=== PATIENT | male | born 1960 | race African-American/Black ===

== ENCOUNTER 2019-08-09 05:33 | Inpatient (IN) | payer SELFPAY ==
[2019-08-09] MEDS ORDERED: IPRATROPIUM/ALBUTEROL 0.5-2.5 MG/3 ML AMPUL NEB ONE ×2 (05:39→05:57)
[2019-08-09] MEDS ORDERED: METHYLPREDNISOLONE INJ 125 MG/2 ML SDV ONE (05:39)
[2019-08-09] MEDS ORDERED: ALBUTEROL SULFATE 0.083% NEB 2.5 MG/3 ML AMPUL NEB ONE ×2 (05:39→06:40)
[2019-08-09] MEDS ORDERED: MAGNESIUM SULFATE/D5W 2 GM/200 ML RTUPB IV ONE (05:39)
--- NOTE | 2019-08-09 05:43 | ER Document Report ---
ED General - General Chief Complaint: Breathing Difficulty Stated Complaint: BREATHING DIFFICULTY Time Seen by Provider: 08/09/19 05:37 Mode of Arrival: Ambulatory Information source: Patient Notes: 59-year-old black male from [place] arrives after having 4 hours of increased respiratory distress while down in [place]. He is out of his hand-held nebulizer which he usually readily uses if he has respiratory problems. Patient advises that the pine pollen in [place] is much different than in [place] at this time. He also complains of shortness of breath and 2 word sentenc es and assess her use of musculature and neck. TRAVEL OUTSIDE OF THE [place] IN LAST 30 DAYS: No - HPI Onset: Just prior to arrival - Related Data Allergies/Adverse Reactions: No Known Allergies Allergy (Unverified 09/05/18 05:58) Past Medical History - General Information source: Patient - Social History Smoking Status: Former Smoker Cigarette use (# per day): No Chew tobacco use (# tins/day): No Smoking Education Provided: No Frequency of alcohol use: Occasional Drug Abuse: None Family History: Reviewed & Not Pertinent, Hypertension Pulmonary Medical History: Reports: Hx COPD Renal/ Medical History: Denies: Hx Peritoneal Dialysis Review of Systems - Review of Systems Constitutional: See HPI, Malaise, Weakness EENT: See HPI, Nose congestion, Sinus pressure Cardiovascular: See HPI, Heart racing Respiratory: See HPI, Cough, Hurts to breathe, Short of breath, Sputum, Wheezing Gastrointestinal: No symptoms reported Genitourinary: No symptoms reported Male Genitourinary: No symptoms reported Musculoskeletal: No symptoms reported Skin: No symptoms reported Hematologic/Lymphatic: No symptoms reported Neurological/Psychological: No symptoms reported Physical Exam - Vital signs Vitals: Resp Pulse Ox 22 H 99 08/09/19 05:37 08/09/19 05:37 Interpretation: Tachycardic, Tachypneic - General General appearance: Alert, Anxious - HEENT Head: Normocephalic Eyes: Normal Conjunctiva: Normal Cornea: Normal Extraocular movements intact: Yes Eyelashes: Normal Pupils: PERRL Sinus: Normal Nasal: Normal Mouth/Lips: Normal Mucous membranes: Normal Pharynx: Normal Neck: Normal - Respiratory Respiratory status: Respiratory distress Chest status: Nontender, Pain with deep breathing, Accessory muscle use, Prolonged expirations Breath sounds: Decreased air movement, Wheezing Chest palpation: Normal - Cardiovascular Rhythm: Tachycardia Heart sounds: Normal auscultation Murmur: No Friction rub: No Lisa's crunch: No - Abdominal Inspection: Normal Distension: No distension Bowel sounds: Normal Tenderness: Nontender Organomegaly: No organomegaly - Back Back: Normal - Extremities General upper extremity: Normal inspection General lower extremity: Normal inspection - Neurological Neuro grossly intact: Yes Cognition: Normal Orientation: AAOx4 Juliette Coma Scale Eye Opening: Spontaneous [place]te Coma Scale Verbal: Oriented [place] Coma Scale Motor: Obeys Commands [place] Coma Scale Total: 15 Speech: Normal Cranial nerves: Normal Cerebellar coordination: Normal Motor strength normal: LUE, RUE, LLE, RLE - Psychological Associated symptoms: Anxious - Skin Skin Temperature: Cool Skin Moisture: Diaphoretic Course - Vital Signs Vital signs: Temp Pulse Resp BP Pulse Ox 22 H 143/109 H 98 08/09/19 06:01 08/09/19 06:01 08/09/19 06:01 - Laboratory Result Diagrams: 08/09/19 05:53 08/09/19 05:53 Laboratory results interpreted by me: 08/09/19 08/09/19 08/09/19 05:42 05:53 05:53 RDW 14.1 H Eos % (Auto) 14.6 H Absolute Eos (auto) 1.1 H Seg Neutrophils % 29.6 L VBG pH 7.24 L VBG pCO2 67.9 H* Carbon Dioxide 32 H Glucose 139 H Total Protein 8.9 H - Diagnostic Test Radiology reviewed: Reports reviewed - EKG Interpretation by Me EKG shows normal: Sinus rhythm Rate: Tachycardia Rhythm: NSR Critical Care Note - Critical Care Note Total time excluding time spent on procedures (mins): 90 Comments: Patient's arrives at 0 610 and she has no complaints. They deny any exposure to coronavirus but they are from [place]. Patient looks much improved by 0 626 with lungs clear on auscultation. Patient continues his breathing treatment at this time. Will write for hand-held nebulizer refill Z-Per and steroids Decadron 4 mg twice daily Discharge - Discharge Clinical Impression: COPD with exacerbation Asthmatic bronchitis Qualifiers: Asthma severity: severe Asthma persistence: persistent Asthma complication type: uncomplicated Qualified Code(s): J45.50 - Severe persistent asthma, uncomplicated Condition: Good Disposition: HOME, SELF-CARE Additional Instructions: Follow-up with personal doctor this week return to ER as needed ;take medicines as directed; encourage fluids; try to avoid pollen contaminated areas Prescriptions: Dexamethasone [Decadron 4 Mg Tablet] 4 mg PO BID #8 tablet Albuterol Sulfate [Proair HFA Inhalation Aerosol 8.5 gm MDI] 2 puff IH Q4H PRN #1 mdi PRN Reason: Azithromycin [Zithromax 250 mg Tablet] 250 mg PO ASDIR PRN #6 tablet PRN Reason:
[2019-08-09] MEDS ORDERED: METHYLPREDNISOLONE INJ 125 MG/2 ML SDV IV ONE (05:57)
[2019-08-09] MEDS: MAGNESIUM SULFATE/D5W 1 GM/100 ML RTUPB IV SCH ×2 (06:01→06:14)
[2019-08-09 06:02] LABS: ABSOLUTE BASOPHILS # (AUTO) 0.1 10^3/uL (0.0-0.2); ABSOLUTE EOSINOPHILS # (AUTO) 1.1 10^3/uL (0.0-0.6); ABSOLUTE LYMPHOCYTES (AUTO) 3.3 10^3/uL (0.5-4.7); ABSOLUTE MONOCYTES (AUTO) 0.8 10^3/uL (0.1-1.4); ABSOLUTE NEUT (AUTO) 2.3 10^3/uL (1.7-8.2); BASOPHILS % (AUTO) 1.4 % (0-2); EOSINOPHILS % (AUTO) 14.6 % (0-6); HEMATOCRIT 44.6 % (37.9-51.0); HEMOGLOBIN 15.1 g/dL (13.5-17.0); LYMPHOCYTES % (AUTO) 43.8 % (13-45); MEAN CORPUSCULAR HEMOGLOBIN 27.5 pg (27.0-33.4); MEAN CORPUSCULAR HGB CONC 33.8 g/dL (32.0-36.0); MEAN CORPUSCULAR VOLUME 81 fl (80-97); MONOCYTES % (AUTO) 10.6 % (3-13); PLATELET COUNT 256 10^3/uL (150-450); RED BLOOD COUNT 5.48 10^6/uL (4.35-5.55); RED CELL DISTRIBUTION WIDTH 14.1 % (11.5-14.0); SEGMENTED NEUTROPHILS % (AUTO) 29.6 % (42-78); TOTAL CELLS COUNTED % (AUTO) 100 %; WHITE BLOOD COUNT 7.6 10^3/uL (4.0-10.5)
[2019-08-09 06:10] LABS: ALBUMIN 4.9 g/dL (3.5-5.0); ALKALINE PHOSPHATASE 60 U/L (38-126); ANION GAP 10 (5-19); ASPARTATE AMINO TRANSFERASE 29 U/L (17-59); BILIRUBIN,DIRECT 0.2 mg/dL (0.0-0.4); BILIRUBIN,TOTAL 1.1 mg/dL (0.2-1.3); BLOOD UREA NITROGEN 10 mg/dL (7-20); CALCIUM 9.4 mg/dL (8.4-10.2); CARBON DIOXIDE 32 mmol/L (22-30); CHLORIDE 99 mmol/L (98-107); GLUCOSE 139 mg/dL (75-110); POTASSIUM 4.2 mmol/L (3.6-5.0); TOTAL PROTEIN 8.9 g/dL (6.3-8.2)
[2019-08-09 06:20] LABS: INTERNATIONAL RATION (INR) 0.98
[2019-08-09 06:21] LABS: VENOUS BLOOD BASE EXCESS -1.1 mmol/L; VENOUS BLOOD HCO3 28.3 mmol/L (20-32); VENOUS BLOOD PH 7.24 (7.30-7.42)
[2019-08-09 06:22] LABS: VENOUS BLOOD PCO2 67.9 mmHg (35-63)
[2019-08-09] MEDS: ALBUTEROL SULFATE 0.083% NEB 2.5 MG/3 ML AMPUL NEB SCH ×5 (07:03→20:04)
--- NOTE | 2019-08-09 07:34 | ER Document Report ---
Doctor's Note Notes: 08/09/19 07:32 This 59-year-old male patient with a history of COPD and the nurse asked me to see this patient because he was up for discharge while he was still on BiPAP receiving breathing treatments. She is concerned that he was still with diffuse wheezing. I saw the patient and found him to still have diffuse expiratory expiratory wheezes and rhonchi. He states his breathing was much better than when he first got here. His states that his breathing when he came in was as bad as it was in August of last year when he was admitted here. His chest x-ray shows hyperinflated lungs. Dr. Gonsalez of the hospitalist service was contacted and she will admit the patient to [facility].
--- NOTE | 2019-08-09 07:36 | RADIOLOGY REPORT (SQ) ---
EXAM DESCRIPTION: XR CHEST 1 VIEW COMPLETED DATE/TME: 08/09/2019 05:45 CLINICAL HISTORY: sob COMPARISON: None. FINDINGS: Single frontal view of the chest. Cardiomediastinal silhouette: Normal size and contour. Lungs: No consolidation, pneumothorax, or pleural effusion. Bones: No acute osseous abnormality. Leads overlie the chest. Upper abdomen: No abnormality identified. IMPRESSION: 1. No acute pulmonary process identified.
[2019-08-09] MEDS ORDERED: IPRATROPIUM/ALBUTEROL 0.5-2.5 MG/3 ML AMPUL NEB PRN (07:57)
[2019-08-09] MEDS ORDERED: ACETAMINOPHEN 325 MG TABLET PO PRN (07:57)
[2019-08-09] MEDS ORDERED: ONDANSETRON 4 MG TAB.RAPDIS PO PRN (07:57)
[2019-08-09] MEDS ORDERED: MAG HYDROX/AL HYDROX/SIMETH SUSP 30 ML UDCUP PO PRN (07:57)
[2019-08-09] MEDS ORDERED: OXYCODONE-ACETAMINOPHEN 5-325 MG TABLET PO PRN (07:57)
[2019-08-09] MEDS ORDERED: ZOLPIDEM TARTRATE 5 MG TABLET PO PRN (07:57)
[2019-08-09 08:58] LABS: ARTERIAL BLOOD BASE EXCESS 0.3 mmol/L; ARTERIAL BLOOD FIO2 30%; ARTERIAL BLOOD H2CO3 1.32 mmol/L (1.05-1.35); ARTERIAL BLOOD HCO3 25.6 mmol/L (20-24); ARTERIAL BLOOD O2 SATURATION 94.3 % (94-98); ARTERIAL BLOOD PH 7.38 (7.35-7.45); ARTERIAL BLOOD PO2 72.4 mmHg (80-100)
--- NOTE | 2019-08-09 10:27 | PDOC H&P ---
History of Present Illness Admission Date/PCP: 08/09/19 07:39 Patient complains of: Patient presents emergency room with complaint of difficulty breathing and shortness of breath. He had been in the ER overnight and had required bronchodilators as well as steroid treatment. He however c ontinue to wheeze and had to be placed on BiPAP. He is been admitted for further management. History of Present Illness: ZECHARIAH BOYER is a 59 year old mal Patient was seen on BiPAP. He states his breathing is better. He is actually visiting from [place]. There is no complaint of fever sore throat dizziness chest pain or any other pertinent symptoms. He does have a history of COPD. There is been no history of outside travel. He apparently was admitted here abo pa a year ago for the same symptoms. X-ray shows hyperinflated lungs. Patient said he was out on the beach enjoying the sunrise and then went back home symptoms started shortly after. He felt that he may be due to the allergens Past Medical History Pulmonary Medical History: Reports: Chronic Obstructive Pulmonary Disease (COPD) Past Surgical History Past Surgical History: Reports: None Social History Information Source: Patient Smoking Status: Never Smoker Electronic Cigarette use?: No Frequency of Alcohol Use: None Hx Recreational Drug Use: No Drugs: None Hx Prescription Drug Abuse: No - Advance Directive Resuscitation Status: Full Code Family History Family History: Reviewed & Not Pertinent, Hypertension Parental Family History Reviewed: Yes Children Family History Reviewed: Yes Sibling(s) Family History Reviewed.: Yes Medication/Allergy Home Medications: Albuterol Sulfate [Proair HFA Inhalation Aerosol 8.5 gm MDI] 2 puff IH Q4HP PRN 09/05/18 Albuterol Sulfate [Proair HFA Inhalation Aerosol 8.5 gm MDI] 2 puff IH Q4H PRN #1 mdi 08/09/19 Azithromycin [Zithromax 250 mg Tablet] 250 mg PO ASDIR PRN #6 tablet 08/09/19 Dexamethasone [Decadron 4 Mg Tablet] 4 mg PO BID #8 tablet 08/09/19 Umeclidinium Brm/Vilanterol Tr [Anoro Ellipta 62.5-25 Mcg INH] 1 puff IH DAILY 08/09/19 Allergies/Adverse Reactions: No Known Allergies Allergy (Unverified 09/05/18 05:58) Review of Systems All systems: reviewed and no additional remarkable complaints except as stated Nose, Mouth, and Throat: ABSENT: headache(s), sore throat Cardiovascular: ABSENT: chest pain, dyspnea on exertion, orthropnea Respiratory: PRESENT: dyspnea. ABSENT: cough, hemoptysis, sputum Physical Exam Vital Signs: Temp Pulse Resp BP Pulse Ox 97.4 F 103 H 16 124/88 H 96 08/09/19 09:30 08/09/19 09:32 08/09/19 09:43 08/09/19 09:30 08/09/19 09:43 Intake & Output 08/08/19 08/09/19 08/10/19 06:59 06:59 06:59 Intake Total 200 Balance 200 Weight 70.307 kg General appearance: PRESENT: no acute distress, well-nourished, other - BIPAP in place Head exam: PRESENT: atraumatic Eye exam: PRESENT: conjunctiva pink, EOMI, PERRLA. ABSENT: scleral icterus Ear exam: PRESENT: normal external ear exam Mouth exam: PRESENT: moist, tongue midline Neck exam: ABSENT: carotid bruit, JVD, lymphadenopathy, thyromegaly Respiratory exam: PRESENT: decreased breath sounds, rhonchi, unlabored, wheezes. ABSENT: accessory muscle use, chest wall tenderness, crackles, rales, retraction, tachypnea Cardiovascular exam: PRESENT: RRR. ABSENT: diastolic murmur, rubs, systolic murmur Pulses: PRESENT: normal dorsalis pedis pul Vascular exam: PRESENT: normal capillary refill GI/Abdominal exam: PRESENT: normal bowel sounds, soft. ABSENT: distended, guarding, mass, organolmegaly, rebound, tenderness Rectal exam: PRESENT: deferred Extremities exam: PRESENT: full ROM. ABSENT: calf tenderness, clubbing, pedal edema Neurological exam: PRESENT: alert, awake, oriented to person, oriented to place, oriented to time, oriented to situation, CN II-XII grossly intact. ABSENT: motor sensory deficit Psychiatric exam: PRESENT: appropriate affect, normal mood. ABSENT: homicidal ideation, suicidal ideation Skin exam: PRESENT: dry, intact, warm. ABSENT: cyanosis, rash Results Laboratory Results: 08/09/19 05:53 08/09/19 05:53 08/09/19 08/09/19 08/09/19 05:42 05:42 05:53 WBC 7.6 RBC 5.48 Hgb 15.1 Hct 44.6 MCV 81 MCH 27.5 MCHC 33.8 RDW 14.1 H Plt Count 256 Seg Neutrophils % 29.6 L Carbonic Acid HCO3/H2CO3 Ratio ABG pH ABG pCO2 ABG pO2 ABG HCO3 ABG O2 Saturation ABG Base Excess VBG pH 7.24 L VBG pCO2 67.9 H* VBG HCO3 28.3 VBG Base Excess -1.1 FiO2 Sodium Potassium Chloride Carbon Dioxide Anion Gap BUN Creatinine Est GFR ( Amer) Glucose Lactic Acid 1.8 Calcium Total Bilirubin AST Alkaline Phosphatase Total Protein Albumin 08/09/19 08/09/19 05:53 08:44 WBC RBC Hgb Hct MCV MCH MCHC RDW Plt Count Seg Neutrophils % Carbonic Acid 1.32 HCO3/H2CO3 Ratio 19:1 ABG pH 7.38 ABG pCO2 44.0 ABG pO2 72.4 L ABG HCO3 25.6 H ABG O2 Saturation 94.3 ABG Base Excess 0.3 VBG pH VBG pCO2 VBG HCO3 VBG Base Excess FiO2 30% Sodium 140.5 Potassium 4.2 Chloride 99 Carbon Dioxide 32 H Anion Gap 10 BUN 10 Creatinine 0.99 Est GFR ( Amer) > 60 Glucose 139 H Lactic Acid Calcium 9.4 Total Bilirubin 1.1 AST 29 Alkaline Phosphatase 60 Total Protein 8.9 H Albumin 4.9 08/09/19 05:42 Troponin I < 0.012 Impressions: Chest X-Ray 08/09/19 05:45 IMPRESSION: 1. No acute pulmonary process identified. Assessment and Plan - Diagnosis (1) Acute hypercapnic respiratory failure Is this a current diagnosis for this admission?: Yes Plan: PCO2 was found to be elevated. He remains on BiPAP. Will wean off as tolerated (2) COPD with exacerbation Is this a current diagnosis for this admission?: Yes Plan: Continue bronchodilators as well as steroids. Will review his home medications and start him on his other inhalers as indicated. He will also be placed on empiric Zithromax - Time Time Spent with patient: 25-34 minutes Medications reviewed and adjusted accordingly: Yes Anticipated discharge: Home Within: within 48 hours - Inpatient Certification Based on my medical assessment, after consideration of the patient's comorbid ities, presenting symptoms, or acuity I expect that the services needed warrant INPATIENT care.: Yes Medical Necessity: Need for Nebulizer Therapy and Monitoring of Response, Risk of Complication if Not Cared For in Hospital
[2019-08-09] MEDS: AZITHROMYCIN 250 MG TABLET PO SCH (10:54)
[2019-08-09] MEDS: ENOXAPARIN SODIUM INJ 40 MG/0.4 ML DISP.SYRIN SUBCUT SCH (10:54)
[2019-08-09] MEDS: DOCUSATE SODIUM 100 MG CAPSULE PO SCH (10:54)
[2019-08-09] MEDS: DEXTROSE 5%-1/2 NORMAL SALINE 1,000 ML IV PRN (13:13)
--- NOTE | 2019-08-09 15:54 | EKG REPORT ---
SEVERITY:- BORDERLINE ECG - SINUS TACHYCARDIA PROBABLE LEFT ATRIAL ABNORMALITY : Confirmed by: Cecile Hoyt MD 09-Aug-2019 15:53:26
[2019-08-10] MEDS: DEXTROSE 5%-1/2 NORMAL SALINE 1,000 ML IV PRN ×2 (02:07→17:44)
[2019-08-10] MEDS: ALBUTEROL SULFATE 0.083% NEB 2.5 MG/3 ML AMPUL NEB SCH ×4 (02:17→20:02)
[2019-08-10 04:55] LABS: HEMATOCRIT 40.6 % (37.9-51.0); HEMOGLOBIN 13.5 g/dL (13.5-17.0); MEAN CORPUSCULAR HGB CONC 33.4 g/dL (32.0-36.0); MEAN CORPUSCULAR VOLUME 81 fl (80-97); PLATELET COUNT 225 10^3/uL (150-450); RED BLOOD COUNT 5.02 10^6/uL (4.35-5.55); RED CELL DISTRIBUTION WIDTH 13.9 % (11.5-14.0); WHITE BLOOD COUNT 9.9 10^3/uL (4.0-10.5)
[2019-08-10 05:12] LABS: ANION GAP 12 (5-19); BLOOD UREA NITROGEN 14 mg/dL (7-20); CALCIUM 9.4 mg/dL (8.4-10.2); CARBON DIOXIDE 25 mmol/L (22-30); CHLORIDE 102 mmol/L (98-107); GLUCOSE 114 mg/dL (75-110); POTASSIUM 4.5 mmol/L (3.6-5.0)
--- NOTE | 2019-08-10 09:57 | PDOC PROGRESS REPORT ---
Subjective Progress Note for:: 08/10/19 Subjective:: Patient says his breathing is better. He still pretty stuffy. Is still apparently is hypoxemic especially when sleeping. Is currently on 3 L of oxygen. Reason For Visit: ACUTE HYPERCAPNEIC RESPIRATORY FAILURE, ASTHMA Physical Exam Vital Signs: Temp Pulse Resp BP Pulse Ox 98.3 F 91 24 H 153/92 H 93 08/10/19 08:55 08/10/19 08:55 08/10/19 08:55 08/10/19 08:55 08/10/19 08:55 Intake & Output 08/09/19 08/10/19 08/11/19 06:59 06:59 06:59 Intake Total 200 1748 Output Total 2350 Balance 200 -602 Weight 70.307 kg 73.4 kg General appearance: PRESENT: no acute distress, cooperative Head exam: PRESENT: atraumatic, normocephalic Eye exam: PRESENT: conjunctiva pink. ABSENT: scleral icterus Mouth exam: PRESENT: moist, tongue midline Neck exam: ABSENT: carotid bruit, JVD, lymphadenopathy, thyromegaly Respiratory exam: PRESENT: decreased breath sounds, rhonchi, unlabored, wheezes - Inspiratory bilateral. ABSENT: rales Cardiovascular exam: PRESENT: RRR, +S1, +S2. ABSENT: diastolic murmur, rubs, systolic murmur Pulses: PRESENT: normal dorsalis pedis pul Vascular exam: PRESENT: normal capillary refill GI/Abdominal exam: PRESENT: normal bowel sounds, soft. ABSENT: distended, guarding, mass, organolmegaly, rebound, tenderness Rectal exam: PRESENT: deferred Extremities exam: PRESENT: full ROM. ABSENT: calf tenderness, clubbing, pedal edema Neurological exam: PRESENT: alert, awake, oriented to person, oriented to place, oriented to time, oriented to situation, CN II-XII grossly intact. ABSENT: motor sensory deficit Psychiatric exam: PRESENT: appropriate affect, normal mood. ABSENT: homicidal ideation, suicidal ideation Skin exam: PRESENT: dry, intact, warm. ABSENT: cyanosis, rash Results Laboratory Results: 08/10/19 04:16 08/10/19 04:16 08/09/19 08/09/19 08/10/19 10:15 13:00 04:16 WBC 9.9 RBC 5.02 Hgb 13.5 Hct 40.6 MCV 81 MCH 27.0 MCHC 33.4 RDW 13.9 Plt Count 225 Sodium Potassium Chloride Carbon Dioxide Anion Gap BUN Creatinine Est GFR ( Amer) Glucose Lactic Acid 3.1 H 8.0 H Calcium 08/10/19 04:16 WBC RBC Hgb Hct MCV MCH MCHC RDW Plt Count Sodium 138.5 Potassium 4.5 Chloride 102 Carbon Dioxide 25 Anion Gap 12 BUN 14 Creatinine 0.75 Est GFR ( Amer) > 60 Glucose 114 H Lactic Acid Calcium 9.4 08/09/19 05:42 Troponin I < 0.012 Impressions: Chest X-Ray 08/09/19 05:45 IMPRESSION: 1. No acute pulmonary process identified. Assessment and Plan - Diagnosis (1) Acute hypercapnic respiratory failure Is this a current diagnosis for this admission?: Yes Plan: Patient is hypoxemic. He remains on oxygen. He used BiPAP during the night but currently off BiPAP at the time of my exam. We will continue to support and wean off oxygen as tolerated (2) COPD with exacerbation Is this a current diagnosis for this admission?: Yes Plan: Continue bronchodilators as well as steroids and Zithromax. Due to patient's still bronchospastic, hypoxemic is currently going to require further inpatient management and is now stable for discharge. We will add Flonase to his regimen as well as Mucinex and flutter valve - Time Time Spent with patient: 15-24 minutes Medications reviewed and adjusted accordingly: Yes Anticipated discharge: Home Within: within 24 hours
[2019-08-10] MEDS: DOCUSATE SODIUM 100 MG CAPSULE PO SCH (09:58)
[2019-08-10] MEDS ORDERED: (PENDING PHARMACY ID) (Umeclidinium Brm/Vilanterol Tr [Anoro Ellipta 62.5-25 Mcg Inh] 1 PU IH SCH (10:00)
[2019-08-10] MEDS: METHYLPREDNISOLONE INJ 40 MG/1 ML SDV IV SCH ×3 (10:28→21:47)
[2019-08-10] MEDS: GUAIFENESIN 600 MG TABLET.SA PO SCH ×2 (10:28→21:47)
[2019-08-10] MEDS: AZITHROMYCIN 250 MG TABLET PO SCH (10:28)
[2019-08-10] MEDS: ENOXAPARIN SODIUM INJ 40 MG/0.4 ML DISP.SYRIN SUBCUT SCH (10:29)
[2019-08-10] MEDS: FLUTICASONE NASAL SPRAY 50 MCG/SPRY 120 SPRAY/16 GM NASL SCH ×2 (10:44→21:47)
[2019-08-11] MEDS: ALBUTEROL SULFATE 0.083% NEB 2.5 MG/3 ML AMPUL NEB SCH ×2 (02:27→07:57)
[2019-08-11] MEDS: METHYLPREDNISOLONE INJ 40 MG/1 ML SDV IV SCH (05:19)
[2019-08-11] MEDS: DEXTROSE 5%-1/2 NORMAL SALINE 1,000 ML IV PRN (07:07)
[2019-08-11] MEDS: ENOXAPARIN SODIUM INJ 40 MG/0.4 ML DISP.SYRIN SUBCUT SCH (09:21)
[2019-08-11] MEDS: GUAIFENESIN 600 MG TABLET.SA PO SCH (09:22)
[2019-08-11] MEDS: DOCUSATE SODIUM 100 MG CAPSULE PO SCH (09:22)
[2019-08-11] MEDS: AZITHROMYCIN 250 MG TABLET PO SCH (09:22)
[2019-08-11] MEDS: FLUTICASONE NASAL SPRAY 50 MCG/SPRY 120 SPRAY/16 GM NASL SCH (09:23)
[2019-08-11] MEDS ORDERED: FLUTICASONE/VILANTEROL 200-25 MCG/DOSE IH SCH (12:00)
[2019-08-11] MEDS ORDERED: ALBUTEROL SULFATE HFA (90 MCG/PUFF) 8 GM MDI IH ONE (12:00)
--- NOTE | 2019-08-11 13:02 | PDOC DISCHARGE SUMMARY ---
Impression - Admit/DC Date/PCP Admission Date/Primary Care Provider: 08/09/19 07:39 Discharge Date: 08/11/19 - Discharge Diagnosis (1) COPD with exacerbation Is this a current diagnosis for this admission?: Yes (2) Elevated lactic acid level Is this a current diagnosis for this admission?: Yes (3) Acute hypoxemic respiratory failure Is this a current diagnosis for this admission?: Yes - Additional Information Resuscitation Status: Full Code Discharge Activity: Activity As Tolerated Referrals: follow up, [place] [Other] (Patient is a resident of [place]. Will make follow-up when he returns home.) Prescriptions: Fluticasone/Vilanterol [Breo 200-25 Mcg Ellipta 14 Dose/Dpi] 1 inh IH DAILY #1 inhaler Prednisone [Deltasone 20 mg Tablet] 40 mg PO DAILY #10 tablet Fluticasone Propionate [Flonase Nasal [place] 50 Mcg/[place] 16 gm] 1 spray NASL Q12 #1 spray.pump Albuterol Sulfate [Proair HFA Inhalation Aerosol 8.5 gm MDI] 2 puff IH Q4H PRN #1 mdi PRN Reason: Tiotropium [place] [Spiriva Respimat] 4 gm IH DAILY #1 mist.inhal Azithromycin [Zithromax 250 mg Tablet] 500 mg PO DAILY #5 tablet Home Medications: Albuterol Sulfate [Proair HFA Inhalation Aerosol 8.5 gm MDI] 2 puff IH Q4HP PRN 09/05/18 Albuterol Sulfate [Proair HFA Inhalation Aerosol 8.5 gm MDI] 2 puff IH Q4H PRN #1 mdi 08/09/19 Azithromycin [Zithromax 250 mg Tablet] 500 mg PO DAILY #5 tablet 08/11/19 Fluticasone Propionate [Flonase Nasal [place] 50 Mcg/[place] 16 gm] 1 spray NASL Q12 #1 spray.pump 08/11/19 Fluticasone/Vilanterol [Breo 200-25 Mcg Ellipta 14 Dose/Dpi] 1 inh IH DAILY #1 inhaler 08/11/19 Prednisone [Deltasone 20 mg Tablet] 40 mg PO DAILY #10 tablet 08/11/19 Tiotropium [place] [Spiriva Respimat] 4 gm IH DAILY #1 mist.inhal 08/11/19 History of Present Illiness History of Present Illness: ZECHARIAH BOYER is a 59 year old mal Patient was seen on BiPAP. He states his breathing is better. He is actually visiting from [place]. There is no complaint of fever sore throat dizziness chest pain or any other pertinent symptoms. He does have a history of COPD. There is been no history of outside travel. He apparently was admitted here about a year ago for the same symptoms. X-ray shows hyperinflated lungs. Patient said he was out on the beach enjoying the sunrise and then went back home symptoms started shortly after. He felt that he may be due to the allergens Hospital Course Hospital Course: Patient was admitted for further evaluation and management of his COPD exacerbation. He was found to be hypercapnic in the emergency room. He was briefly placed on BiPAP but patient did continue to improve. He was treated with bronchodilators as well as steroids. He was treated with empiric oral antibiotics. He was initially hypoxemic and hypercapnic but this time this has resolved with no need for home oxygen. Patient has remained hemodynamically stable throughout his hospital stay. He has been discharged home in stable condition Physical Exam Vital Signs: Temp Pulse Resp BP Pulse Ox 97.2 F 86 16 135/88 H 95 08/11/19 11:19 08/11/19 11:19 08/11/19 11:19 08/11/19 11:19 08/11/19 11:19 Intake & Output 08/10/19 08/11/19 08/12/19 06:59 06:59 06:59 Intake Total 1748 1880 1000 Output Total 2350 2375 Balance -602 -495 1000 Weight 73.4 kg 69.9 kg General appearance: PRESENT: no acute distress, thin, well-nourished, other - Nasally congested Head exam: PRESENT: atraumatic, normocephalic Eye exam: PRESENT: PERRLA. ABSENT: scleral icterus Mouth exam: PRESENT: tongue midline Neck exam: ABSENT: carotid bruit, JVD, lymphadenopathy, thyromegaly Respiratory exam: PRESENT: clear to auscultation tulio, decreased breath sounds, unlabored. ABSENT: rales, rhonchi, wheezes Cardiovascular exam: PRESENT: RRR, +S1, +S2. ABSENT: diastolic murmur, rubs, systolic murmur Pulses: PRESENT: normal dorsalis pedis pul Vascular exam: PRESENT: normal capillary refill GI/Abdominal exam: PRESENT: normal bowel sounds, soft. ABSENT: distended, guarding, mass, organolmegaly, rebound, tenderness Rectal exam: PRESENT: deferred Extremities exam: PRESENT: full ROM. ABSENT: calf tenderness, clubbing, pedal edema Neurological exam: PRESENT: alert, awake, oriented to person, oriented to place, oriented to time, oriented to situation, CN II-XII grossly intact. ABSENT: motor sensory deficit Psychiatric exam: PRESENT: appropriate affect, normal mood. ABSENT: homicidal ideation, suicidal ideation Skin exam: PRESENT: dry, intact, warm. ABSENT: cyanosis, rash Results Laboratory Results: WBC 9.9 10^3/uL (4.0-10.5) 08/10/19 04:16 RBC 5.02 10^6/uL (4.35-5.55) 08/10/19 04:16 Hgb 13.5 g/dL (13.5-17.0) 08/10/19 04:16 Hct 40.6 % (37.9-51.0) 08/10/19 04:16 MCV 81 fl (80-97) 08/10/19 04:16 MCH 27.0 pg (27.0-33.4) 08/10/19 04:16 MCHC 33.4 g/dL (32.0-36.0) 08/10/19 04:16 RDW 13.9 % (11.5-14.0) 08/10/19 04:16 Plt Count 225 10^3/uL (150-450) 08/10/19 04:16 Lymph % (Auto) 43.8 % (13-45) 08/09/19 05:53 [facility] % (Auto) 10.6 % (3-13) 08/09/19 05:53 Eos % (Auto) 14.6 % (0-6) H 08/09/19 05:53 Baso % (Auto) 1.4 % (0-2) 08/09/19 05:53 Absolute Neuts (auto) 2.3 10^3/uL (1.7-8.2) 08/09/19 05:53 Absolute Lymphs (auto) 3.3 10^3/uL (0.5-4.7) 08/09/19 05:53 Absolute Monos (auto) 0.8 10^3/uL (0.1-1.4) 08/09/19 05:53 Absolute Eos (auto) 1.1 10^3/uL (0.0-0.6) H 08/09/19 05:53 Absolute Basos (auto) 0.1 10^3/uL (0.0-0.2) 08/09/19 05:53 Seg Neutrophils % 29.6 % (42-78) L 08/09/19 05:53 PT 13.0 SEC (11.4-15.4) 08/09/19 05:42 INR 0.98 08/09/19 05:42 Carbonic Acid 1.32 mmol/L (1.05-1.35) 08/09/19 08:44 HCO3/H2CO3 Ratio 19:1 08/09/19 08:44 ABG pH 7.38 (7.35-7.45) 08/09/19 08:44 ABG pCO2 44.0 mmHg (35-45) 08/09/19 08:44 ABG pO2 72.4 mmHg (80-100) L 08/09/19 08:44 ABG HCO3 25.6 mmol/L (20-24) H 08/09/19 08:44 ABG Total CO2 27.0 mmol/L (23-27) 08/09/19 08:44 ABG O2 Saturation 94.3 % (94-98) 08/09/19 08:44 ABG Base Excess 0.3 mmol/L 08/09/19 08:44 VBG pH 7.24 (7.30-7.42) L 08/09/19 05:42 VBG pCO2 67.9 mmHg (35-63) H* 08/09/19 05:42 VBG HCO3 28.3 mmol/L (20-32) 08/09/19 05:42 VBG Base Excess -1.1 mmol/L 08/09/19 05:42 FiO2 30% 08/09/19 08:44 Sodium 138.5 mmol/L (137-145) 08/10/19 04:16 Potassium 4.5 mmol/L (3.6-5.0) 08/10/19 04:16 Chloride 102 mmol/L (98-107) 08/10/19 04:16 Carbon Dioxide 25 mmol/L (22-30) 08/10/19 04:16 Anion Gap 12 (5-19) 08/10/19 04:16 BUN 14 mg/dL (7-20) 08/10/19 04:16 Creatinine 0.75 mg/dL (0.52-1.25) 08/10/19 04:16 Est GFR ( Amer) > 60 (>60) 08/10/19 04:16 Est GFR (MDRD) Non-Af > 60 (>60) 08/10/19 04:16 Glucose 114 mg/dL (75-110) H 08/10/19 04:16 Lactic Acid 3.1 mmol/L (0.7-2.1) H 08/10/19 09:40 Calcium 9.4 mg/dL (8.4-10.2) 08/10/19 04:16 Total Bilirubin 1.1 mg/dL (0.2-1.3) 08/09/19 05:53 Direct Bilirubin 0.2 mg/dL (0.0-0.4) 08/09/19 05:53 Neonat Total Bilirubin Not Reportable 08/09/19 05:53 Neonat Direct Bilirubin Not Reportable 08/09/19 05:53 Neonat Indirect Bili Not Reportable 08/09/19 05:53 AST 29 U/L (17-59) 08/09/19 05:53 ALT 26 U/L (<50) 08/09/19 05:53 Alkaline Phosphatase 60 U/L (38-126) 08/09/19 05:53 Troponin I < 0.012 ng/mL 08/09/19 05:42 Total Protein 8.9 g/dL (6.3-8.2) H 08/09/19 05:53 Albumin 4.9 g/dL (3.5-5.0) 08/09/19 05:53 08/09/19 05:42 Troponin I < 0.012 Impressions: Chest X-Ray 08/09/19 05:45 IMPRESSION: 1. No acute pulmonary process identified. Stroke Is this a Stroke Patient?: No Acute Heart Failure - Is this a Heart Failure Patient?: No
[2019-08-11 13:03] VITALS: BP 123/91
== END 2019-08-11 13:54 | disposition home or self-care (01) | DRG 189 ==
LOC: ER 05:33 → EH 07:39 → 3N 09:25
PROVIDERS: ADMIT Internal Medicine; ATTEND Internal Medicine
PROC: 5A09457 Assistance with Respiratory Ventilation, 24-96 Consecutive Hours, Continuous Positive Airway Pressure (ICD-10-PCS; principal; 2019-08-09)
DX: J96.01 Acute respiratory failure with hypoxia (principal); J44.1 Chronic obstructive pulmonary disease with (acute) exacerbation; R74.0 Nonspecific elevation of levels of transaminase and lactic acid dehydrogenase [LDH]; Z87.891 Personal history of nicotine dependence; Z82.49 Family history of ischemic heart disease and other diseases of the circulatory system; Z79.51 Long term (current) use of inhaled steroids
CPT/HCPCS: 36415; 71045; 80048; 80053; 82803; 83605; 84484; 85025; 85027; 85610; 87040; 93005; 93010; 94640; 94660; 94667; 96365; 96375; 99291; 99292; J1650; J2920; J2930; J3475; J3490; J7620